=== PATIENT | female | born 1960 | race Hispanic/Latino ===

== ENCOUNTER 2019-10-20 07:38 | Day surgery (SDC) | payer MEDICAID ==
[~2019-10-20] VITALS: Ht 152.4 cm; Wt 83.5 kg
[2019-10-20 09:35] VITALS: BP 114/75
[2019-10-20] MEDS ORDERED: PROPOFOL 10 MG/ML 20ML VIAL IV ONE ×2 (11:26→11:27)
[2019-10-20 11:48] VITALS: BP 82/50
[2019-10-20 11:53] VITALS: BP 100/54
[2019-10-20 11:58] VITALS: BP 90/53
[2019-10-20 12:09] VITALS: BP 105/57
[2019-10-20 12:17] VITALS: BP 107/60
== END 2019-10-20 12:30 | disposition home or self-care (01) ==
LOC: DAH 07:38 → RAH 07:38
PROVIDERS: ATTEND Internal Medicine Gastroenterology
DX: R93.3 Abnormal findings on diagnostic imaging of other parts of digestive tract (principal); E03.9 Hypothyroidism, unspecified; F41.9 Anxiety disorder, unspecified; J45.909 Unspecified asthma, uncomplicated; E66.9 Obesity, unspecified; Z72.89 Other problems related to lifestyle; Z87.891 Personal history of nicotine dependence; Z79.899 Other long term (current) drug therapy; Z98.890 Other specified postprocedural states; Z98.51 Tubal ligation status; Z90.710 Acquired absence of both cervix and uterus; Z68.35 Body mass index [BMI] 35.0-35.9, adult
CPT/HCPCS: 43237; A4215; A4221; A4222; A4223; A4606; A4620; A4663; J2704 ×2

== ENCOUNTER 2021-11-17 18:48 | Emergency (ER) | payer MEDICAID ==
[~2021-11-17] VITALS: Ht 152.4 cm; Wt 88.5 kg
[2021-11-17 18:55] VITALS: BP 108/70
[2021-11-17] MEDS ORDERED: HYDROCODONE/ACETAMINOPHEN 10/325 MG TAB PO ONE (20:00)
[2021-11-17] MEDS ORDERED: ACET-2247 PO (20:06)
== END 2021-11-17 20:38 | disposition home or self-care (01) ==
LOC: EDH 18:48
DX: M25.561 Pain in right knee (principal); M25.562 Pain in left knee; J45.909 Unspecified asthma, uncomplicated; M19.90 Unspecified osteoarthritis, unspecified site; Z88.5 Allergy status to narcotic agent; Z90.49 Acquired absence of other specified parts of digestive tract